=== PATIENT | female | born 1980 | race Caucasian/White ===

== ENCOUNTER 2018-08-30 07:11 | Outpatient (CLI) | payer OTHER | END 2018-08-30 07:35 | disposition home or self-care (01) | LOC: SONOGRAMA 07:11 | DX: N60.11 Diffuse cystic mastopathy of right breast (principal); N60.12 Diffuse cystic mastopathy of left breast ==

== ENCOUNTER 2018-09-08 06:43 | Day surgery (SDC) | payer OTHER | END 2018-09-08 13:25 | disposition home or self-care (01) | LOC: CIR.AMB 06:43 | DX: D24.1 Benign neoplasm of right breast (principal) ==